=== PATIENT | male | born 1985 | race Caucasian/White ===

== ENCOUNTER 2018-01-02 15:10 | Emergency (ER) | payer OTHER ==
[2018-01-02 15:48] VITALS: BP 125/82; PULSE 77; TEMP 97.8; BMI 23.3
--- NOTE | 2018-01-02 15:51 | PDOC ---
History of Present Illness - General Chief Complaint: Lethargy Stated Complaint: QUEASY & FATIGUE Time Seen by Provider: 01/02/18 15:15 History Source: Patient Exam Limitations: No Limitations - History of Present Illness Initial Comments: 01/02/18 15:30 This is a 32 YOM with h/o apical tooth abscess and impacted wisdom teeth which are due to be taken out (has an appointment scheduled for January) who p/w palpitations, nausea, lightheadedness, and increased anxiety last night in the setting of accidentally increasing his nicotine use two days ago. (He specifies that he switched to a new kind of e-cigarettes, started feeling sick, and then researched the new kind to discover he was taking in significantly more nicotine than before.) He last smoked last night at midnight and states that he abstained altogether today because he did not want those symptoms to return, but now he is feeling queasy and tired. He normally uses e-cigarettes many times a day and clarifies that his body is not used to having no nicotine at all. He has been having right upper gingival mild denies any recent fever, vomiting, diarrhea, constipation, chest pain, SOB, abdominal pain, or other symptoms. He has a dentist appointment on Thursday and noted mild increased right upper gingival pain, but no significant swelling or active drainage. Past History - Past Medical History Allergies/Adverse Reactions: Allergies Allergy/AdvReac Type Severity Reaction Status Date / Time Sulfa (Sulfonamide Allergy Intermediate Rash Verified 02/26/16 09:42 Antibiotics) amoxicillin Allergy Redness/hot Verified 02/26/16 09:42 /rash Penicillins Allergy Verified 02/26/16 09:42 pseudoephedrine HCl Allergy possible Verified 02/26/16 09:42 [From [facility]] reaction - told of by mother Home Medications: Ambulatory Orders Cetirizine HCl [Zyrtec -] 10 mg PO DAILY 02/26/16 Melatonin/Pyridoxine HCl (B6) [Melatonin 5 mg Tablet] 1 each PO HS 01/02/18 COPD: No - Immunization History Td Vaccination: Yes Immunization Up to Date: (UNSURE) - Suicide/Smoking/Psychosocial Hx Smoking Status: Yes Smoking History: Current every day smoker Have you smoked in the past 12 months: Yes Number of Cigarettes Smoked Daily: 0 Information on smoking cessation initiated: Yes 'Breaking Loose' booklet given: 02/26/16 Hx Alcohol Use: No Drug/Substance Use Hx: No Substance Use Type: None Hx Substance Use Treatment: No Review of Systems - Review of Systems Able to Perform ROS?: Yes Constitutional: Yes: Malaise, Other (tiredness). No: Chills, Fever, Unexplained wgt Loss HEENTM: No: Nose Congestion, Throat Pain Respiratory: No: Cough, Shortness of Breath Cardiac (ROS): Yes: Palpitations (last night; now resolved). No: Chest Pain ABD/GI: Yes: Nausea, Poor Appetite. No: Constipated, Diarrhea, Vomiting : No: Burning, Dysuria Musculoskeletal: No: Back Pain, Neck Pain Integumentary: No: Bruising, Rash Neurological: No: Headache, Numbness, Tingling, Weakness, Dizziness Psychiatric: Yes: Anxiety (acutely worsened last night; now back to baseline) Endocrine: No: Unexplained Weight Gain, Unexplained Weight Loss *Physical Exam - Vital Signs Last Vital Signs Temp Pulse Resp BP Pulse Ox 97.8 F 77 16 125/82 97 01/02/18 15:12 01/02/18 15:12 01/02/18 15:12 01/02/18 15:12 01/02/18 15:12 01/02/18 16:18 GENERAL: nontoxic and well-appearing, nourished, A/Ox4, no acute distress, speaking in full sentences, answers questions appropriately, slightly anxious, accompanied by father who seems supportive HEENT: PERRLA, EOMI, moist mucous membranes, no posterior pharyngeal erythema, no tonsillar swelling or exudates, no cervical lymphadenopathy DENTAL: right superior pre-molar and first molar with false crowns which appear in good position with gingival darkening/discoloration which is mild and stated unchanged over the past few years, no dental tenderness to percussion, no obvious caries, no apical abscess or other dental abscess, no discharge or gingival bleeding, otherwise normal dental exam NECK: No midline ttp, no spinal stepoff or deformity, full ROM, supple CARDIOVASCULAR: Regular rate and rhythm, normal S1S2, MGR, radial and DP pulses 2+ and symmetric, capillary refill <2 seconds, extremities warm and well- perfused Chest wall: Normal appearance, no rash, no bruising, no costal stepoff or deformity, nontender to compression LUNGS/RESPIRATORY: No respiratory distress, normal and symmetric chest movements during respirations, lungs CTA bilaterally, equal breath sounds, no cyanosis, no nail clubbing GI/ABDOMEN: Normal symmetric appearance, normoactive bowel sounds, soft, no tenderness to palpation, no midline pulsatile masses, no palpated organomegaly EXTREMITIES: distal pulses 2+, warm and well-perfused, no LE edema SKIN: Warm and dry, no pallor, no jaundice, no bruising, no rash, no skin breakdown, no cuts, no lesions NEUROLOGICAL: GCS 15, CN II-XII grossly intact, ambulating with normal gait, moving all extremities, 5/5 strength proximally and distally, no facial droop, no decreased sensation Medical Decision Making - Medical Decision Making 01/02/18 16:31 Adult male patient with h/o heavy e-cigarette use p/w nicotine overuse yesterday with palpitations, nausea, and anxiety... Now with queasiness and tiredness today after going all day without using- cigarettes (which he never does). Initial Vital Signs Temp Pulse Resp BP Pulse Ox 97.8 F 77 16 125/82 97 01/02/18 15:12 01/02/18 15:12 01/02/18 15:12 01/02/18 15:12 01/02/18 15:12 Exam: As noted in Physical Exam section. DDX IBNLT: Nicotine toxicity, nicotine withdrawal, viral syndrome, etc. W/U ordered: None TX ordered: Zofran, Pepcid, Maalox 01/02/18 17:10 Reassessment: Patient states much improved queasiness after medications. This patient has gotten significant relief of symptoms while in the ED. On last reassessment, exam is benign. Workup is not concerning for emergency-level pathology at this time. This patient is appropriate for discharge with close outpatient follow up. They are comfortable with this plan and will follow up with their primary care provider in 1-3 days. He has f/u scheduled with his dentist already for this coming Thursday. He is given UpToDate information packet on E-cigarette concerns. Specific return precautions are discussed and they will come back to the ER if necessary. *DC/Admit/Observation/Transfer Diagnosis at time of Disposition: Nausea - Discharge Dispostion Disposition: HOME Condition at time of disposition: Stable Decision to Admit order: No - Referrals Referrals: Fader,Richie M, MD [Primary Care Provider] - - Patient Instructions Printed Discharge Instructions: Smoking Cessation Drugs: Nicotine Replacement Products Additional Instructions: YOU WERE SEEN IN THE ER FOR NAUSEA IN THE SETTING OF INTERRUPTION OF YOUR NORMAL E-CIGARETTE USE PATTERNS. WE DID AN EXAM, WHICH DID NOT SHOW ANY CONCERNING FINDINGS. WE GAVE YOU ZOFRAN FOR NAUSEA, AND PEPCID AND MAALOX FOR STOMACH QUEASINESS. AFTER OUR ASSESSMENT, WE DO NOT BELIEVE YOU ARE HAVING A MEDICAL EMERGENCY AT THIS TIME, AND WE BELIEVE YOU ARE SAFE TO GO HOME. PLEASE FOLLOW UP WITH YOUR PRIMARY CARE PROVIDER IN 1-3 DAYS. CALL THEIR CLINIC, TELL THEM YOU WERE SEEN IN THE ER, AND TELL THEM YOU NEED A FOLLOW-UP. ALSO FOLLOW UP WITH YOUR DENTIST SCHEDULED THIS COMING WEEK. IF YOU HAVE ANY NEW OR WORSENING SYMPTOMS, ESPECIALLY FEVER, VOMITING WITH BLOOD, SEVERE HEADACHE, DIFFICULTY BREATHING, OR CHEST PAIN, PLEASE COME BACK TO THE ER AT ANY TIME (24 HOURS A DAY). IF YOU ARE HAVING SEVERE OR LIFE THREATENING SYMPTOMS, OR SYMPTOMS THAT MAKE IT UNSAFE TO DRIVE OR HAVE SOMEONE DRIVE YOU, PLEASE CALL 911. - Post Discharge Activity
[2018-01-02] MEDS ORDERED: FAMOTIDINE 20 MG TABLET PO ONE (15:59)
[2018-01-02] MEDS ORDERED: ONDANSETRON 4 MG TABLET PO PRN (15:59)
[2018-01-02] MEDS ORDERED: MAG HYDROX/AL HYDROX/SIMETH 30 ML UNIT-DOSE CUP PO ONE (15:59)
[2018-01-02] MEDS ORDERED: MAG HYDROX/AL HYDROX/SIMETH 30 ML UNIT-DOSE CUP ONE (16:02)
[2018-01-02] MEDS ORDERED: ONDANSETRON 4 MG TABLET PO ONE (16:02)
[2018-01-02] MEDS ORDERED: FAMOTIDINE 20 MG TABLET ONE (16:02)
--- NOTE | 2018-01-02 16:23 | PDOC ---
Attending Attestation - Resident Resident Name: Saritha Garcia - ED Attending Attestation I have performed the following: I have examined & evaluated the patient, The case was reviewed & discussed with the resident, I agree w/resident's findings & plan, Exceptions are as noted - HPI HPI: 01/02/18 16:20 32-year-old male with history of OCD nicotine dependence here today complaining of nausea and on dental pain patient states he recently switched his vapor nicotine replacement unit to a stronger nicotine concentration since using and he felt very nauseous yesterday today he did not use it at all in the still feeling nauseous denies any vomiting but felt like he was going to throw up while Modjeska's teeth is also complaining of some right upper molar pain patient has an appointment scheduled his dentist next week denies any facial swelling does have pressure in his sinuses above his teeth no abdominal complaints no urinary complaints denies any other drug use - Physicial Exam PE: 01/02/18 16:21 Awake alert no acute distress right upper anterior molar is with small dental decay above the That He Hasn't Place No Gum Swelling Noted No Fluctuance No Trismus No Tonsillar Your Femur Exits Uvulas Midline Lungs Are Clear Bilaterally Heart Is Regular without Any Murmurs Rubs or Gallops Abdomen Is Soft Nontender Nondistended No CVA Tenderness Skin Is Warm and Dry Neurologically Patient Is Awake Alert Oriented to Call Speech Is Clear - Medical Decision Making 01/02/18 16:22 Patient with symptoms consistent of nicotine dependence and withdrawal nontender abdomen on it and exam we'll treat with ODT Zofran Pepcid Maalox as needed has follow-up scheduled with his dentist next week no signs of dental abscess or gum abscess discharge home told to return for vomiting fever. Or any concerns
== END 2018-01-02 16:44 | disposition home or self-care (01) ==
LOC: FER 15:10
DX: R11.0 Nausea (principal); F17.210 Nicotine dependence, cigarettes, uncomplicated
CPT/HCPCS: 99284-25

== ENCOUNTER 2019-11-10 14:01 | Emergency (ER) | payer OTHER ==
--- NOTE | 2019-11-10 14:08 | PDOC ---
Attending Attestation - Resident Resident Name: Susie Lopez - HPI HPI: 11/10/19 19:00 Pt presents to the ED complaining of intermittent headaches and blurring of his peripheral vision that occurs when he is having headaches. PAtient has neurology follow up next week. Currently asymptomatic. Presented to the ED today because he was told to come to the emergency department for any visual symptoms. - Physicial Exam PE: 11/10/19 19:17 agree with resident exam. Patient is alert and oriented and in no acute distress. - Medical Decision Making 11/11/19 16:47 Pt presents to the Ed complaining of intermittent headaches and intermittent blurriness of his peripheral vision. Has neurology follow up next week. Currently asymptomatic. Will discharge home. Discharge - Discharge Information Problems reviewed: Yes Clinical Impression/Diagnosis: Migraine Qualifiers: Migraine type: with aura Status migrainosus presence: without status migrainosus Intractability: not intractable Qualified Code(s): G43.109 - Mi graine with aura, not intractable, without status migrainosus Condition: Good Disposition: HOME - Follow up/Referral Referrals: Richie Silva MD [Primary Care Provider] - - Patient Discharge Instructions Patient Printed Discharge Instructions: DI for Migraine, DI for Visual Field Disturbances Additional Instructions: You were seen in the ER today for visual changes, but your exam did not show any visual deficits or neurological symptoms today. Please follow-up with your primary care doctor and neurology for your scheduled appointments next week. Please return to the ER if you have any worsening pain, vision loss or headaches that are changing in quality or do not resolve, weakness or numbness in your extremities, development of fevers or chills, loss of consciousness, inability to tolerate food or fluids, or any other concerns. You can take tylenol or motrin every 4-6 hours as needed for pain. - Post Discharge Activity
[2019-11-10 14:18] VITALS: BP 131/86; PULSE 101; TEMP 99.2; BMI 24.8
[2019-11-10] MEDS ORDERED: IBUPROFEN 400 MG TABLET (FP) PO ONE ×2 (14:49→14:53)
--- NOTE | 2019-11-10 14:49 | PDOC ---
History of Present Illness - General Chief Complaint: Eye Problem Stated Complaint: EYE PROBLEM Time Seen by Provider: 11/10/19 14:05 History Source: Patient Exam Limitations: No Limitations - History of Present Illness Initial Comments: Pt is a 34 yo M, with PMH of ADHD, depression, migraines, and TMJ issues (resolved s/p PT and dental interventions), who is presenting with recurrent "vision loss" and development of a frontal headache x1 hour before arrival. Pt states he intermittently has changes to his vision "like a blurryness when you rub your eyes" in the periphery of his vision. These visual changes always come before a headache, and resolve on its own without intervention. Pt states he spoke to an urgent care team, who told him "to come to the ER for a CT scan when he has vision changes". Pt saw an folder and notcher last week, "who told me my exam and nerve were fine". Pt has an appointment to see the ENT and Neurology next week. Pt denies any fevers/chills, complete loss of vision, floaters, eye pain, eye redness or drainage, hearing loss or tinnitus, ataxia or dizziness, syncope, chest pain, palpitations, SOB, nausea/vomiting, abdominal pain, urinary symptoms, diarrhea/constipation, rash, or leg swelling. Allergies: NKDA PCP: Dr. Silva Social: Pt denies any cigarette, alcohol, or drug use. Pt denies any recent travel or sick contacts. Surgical: no relevant history. Family: father with hx of migraines and "heart valve problem" (pt had echo and EKG done last year which was normal) 11/10/19 14:49 11/10/19 14:56 Past History - Travel History Traveled outside of the country in the last 30 days: No Close contact w/someone who was outside of country & ill: No - Medical History Allergies/Adverse Reactions: Allergies Allergy/AdvReac Type Severity Reaction Status Date / Time Sulfa (Sulfonamide Allergy Intermediate Rash Verified 11/10/19 14:04 Antibiotics) amoxicillin Allergy Redness/hot Verified 11/10/19 14:04 /rash clindamycin Allergy Verified 11/10/19 14:04 Penicillins Allergy Verified 11/10/19 14:04 pseudoephedrine HCl Allergy possible Verified 11/10/19 14:04 [From [facility]] reaction - told of by mother Home Medications: Ambulatory Orders Cetirizine HCl [Zyrtec -] 10 mg PO DAILY 02/26/16 COPD: No - Immunization History Td Vaccination: Yes Immunization Up to Date: (UNSURE) - Psycho-Social/Smoking History Smoking Status: Yes Smoking History: Never smoked Have you smoked in the past 12 months: Yes Number of Cigarettes Smoked Daily: 0 'Breaking Loose' booklet given: 02/26/16 - Substance Abuse Hx (Audit-C & DAST Scrn) How often the patient has a drink containing alcohol: Never Score: In Men: 4 or > Positive; In Women: 3 or > Positive: 0 Screen Result (Pos requires Nsg. Audit-10AR): Negative In the last yr the pt used illegal drug/Rx for NonMed reason: No Score: Yes response is considered Positive: 0 Screen Result (Positive result requires Nsg. DAST-10): Negative Neuro Specific PMHX - Complaint Specific PMHX Glaucoma: No Herniated Disk: No Laminectomy: No Migraine: Yes Multiple Sclerosis: No Neuropathy: No TIA: No Review of Systems - Review of Systems Able to Perform ROS?: Yes Is the patient limited Bhutanese proficient: No Constitutional: Yes: Weight Stable. No: Chills, Diaphoresis, Fever, Loss of Appetite, Malaise, Weakness HEENTM: Yes: Blurred Vision. No: Eye Pain, Tearing, Recent change in vision, Double Vision, Cataracts, Ear Pain, Ear Discharge, Nose Congestion, Tinnitus, Throat Pain, Throat Swelling, Difficulty Swallowing Respiratory: No: Cough, Orthopnea, Shortness of Breath Cardiac (ROS): No: Chest Pain, Edema, Irregular Heart Rate, Lightheadedness, Palpitations, Syncope, Chest Tightness ABD/GI: No: Constipated, Diarrhea, Nausea, Poor Appetite, Poor Fluid Intake, Vo miting : No: Burning, Dysuria, Pain, Urgency Musculoskeletal: No: Back Pain, Neck Pain Integumentary: No: Change in Color, Rash Neurological: Yes: Headache. No: Numbness, Paresthesia, Seizure, Tingling, Weakness, Unsteady Gait, Ataxia, Dizziness Psychiatric: No: Sleep Pattern Change, Change in Appetite Endocrine: No: Increased Urine, Change in Weight Hematologic/Lymphatic: No: Anemia, Blood Clots, Easy Bleeding, Easy Bruising All Other Systems: Reviewed and Negative *Physical Exam - Vital Signs Last Vital Signs Temp Pulse Resp BP Pulse Ox 99.2 F 101 H 15 131/86 97 11/10/19 14:02 11/10/19 14:02 11/10/19 14:02 11/10/19 14:02 11/10/19 14:02 - Physical Exam Vitals stable, pt afebrile. Pt in NAD, but is anxious. Normal body habitus. Pt alert and oriented x3. 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 Cerebellar exam WNL. Gait stable without assistance. Romberg normal. Muscular strength and sensation intact in all extremities. No midline spinal tenderness, step-offs, or crepitus. No reproducible paraspinal TTP. Head normocephalic, atraumatic. No facial TTP or tenderness over sinuses. Eyes PERRLA, EOMI. Visual acuity 20/20 b/l. No visual field deficits. Color vision intact and pt can discriminate between various shades of red and blue. Oropharynx without erythema or exudates, no LAD b/l. No nasal congestion. No rhinorrhea. Hearing intact. Clear heart sounds, S1/S2, no JVD, b/l pedal edema, or heart murmur. Clear lung sounds, no respiratory distress, wheezes, crackles, or accessory muscle use. No abdominal or CVA tenderness to palpation, no rebound, no guarding. Abdomen soft, non-distended, and with normoactive bowel sounds. Skin without jaundice or rash. 11/10/19 15:03 Medical Decision Making - Medical Decision Making Pt was seen at bedside, also will be seen by attending Dr. Pemberton. Pt presenting with visual field changes associated with headaches. Pt has intact visual acuity, visual france, and color vision in ED. No FNDs on exam, steady gait. Pt without nausea/vomiting, and headaches have not changed in severity or suddenness of onset. 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 Likely migraines with visual aura. No evidence of CVA, less likely MS or brain mass. Provided 800 mg PO motrin for improvement of headache. Pt safe for f/u with PCP and has neurology and ENT appointments next week. Pt ambulatory from ED without assistance and lives with his parents. Strict return precautions provided with pt understanding. 11/10/19 15:06 Discharge - Discharge Information Problems reviewed: Yes Clinical Impression/Diagnosis: Migraine Qualifiers: Migraine type: with aura Status migrainosus presence: without status migrainosus Intractability: not intractable Qualified Code(s): G43.109 - Migraine with aura, not intractable, without status migrainosus Condition: Good Disposition: HOME - Admission No - Follow up/Referral Referrals: Richie Silva MD [Primary Care Provider] - - Patient Discharge Instructions Patient Printed Discharge Instructions: DI for Migraine, DI for Visual Field Disturbances Additional Instructions: You were seen in the ER today for visual changes, but your exam did not show any visual deficits or neurological symptoms today. Please follow-up with your primary care doctor and neurology for your scheduled appointments next week. Please return to the ER if you have any worsening pain, vision loss or headaches that are changing in quality or do not resolve, weakness or numbness in your extremities, development of fevers or chills, loss of consciousness, inability to tolerate food or fluids, or any other concerns. You can take tylenol or motrin every 4-6 hours as needed for pain. - Post Discharge Activity
== END 2019-11-10 14:56 | disposition home or self-care (01) ==
LOC: FER 14:01
DX: G43.109 Migraine with aura, not intractable, without status migrainosus (principal)
CPT/HCPCS: 99283-25

== ENCOUNTER 2022-09-15 18:21 | Emergency (ER) | payer OTHER ==
[2022-09-15 18:42] VITALS: BP 114/83; PULSE 87; RESP 16; TEMP 98.8; BMI 23.6
== END 2022-09-15 21:40 | disposition home or self-care (01) ==
LOC: FER 18:21
DX: M79.662 Pain in left lower leg (principal); R45.1 Restlessness and agitation
CPT/HCPCS: 93971-TC; 99284-25

== ENCOUNTER 2023-10-25 10:39 | Emergency (ER) | payer OTHER ==
[2023-10-25 10:47] VITALS: BP 130/69; TEMP 99.4; BMI 24.1
[2023-10-25 12:21] VITALS: PULSE 85; RESP 1
== END 2023-10-25 12:10 | disposition home or self-care (01) ==
LOC: FER 10:39
DX: M94.0 Chondrocostal junction syndrome [Tietze] (principal)
CPT/HCPCS: 36415; 71046-TC-FY; 84484; 93005; 99285-25

== ENCOUNTER 2024-01-14 11:03 | Emergency (ER) | payer OTHER ==
[2024-01-14 11:15] VITALS: BP 124/82; PULSE 97; RESP 18; TEMP 99; BMI 24.2
== END 2024-01-14 12:17 | disposition home or self-care (01) ==
LOC: FER 11:03
DX: R06.02 Shortness of breath (principal); U07.1 COVID-19; R09.89 Other specified symptoms and signs involving the circulatory and respiratory systems; R05.9 Cough, unspecified
CPT/HCPCS: 71045-TC-FY; 99283-25